=== PATIENT | female | born 1985 | race Caucasian/White ===

== ENCOUNTER 2018-02-25 13:29 | Inpatient (IN) | payer MEDICAID ==
[2018-02-25] MEDS ORDERED: PITOCin/NS 20 UNIT/1000ML DRIP 20,000 MILLIUNITS/1,000 ML BAG IV ONE (17:57)
--- NOTE | 2018-02-25 18:23 | Procedure Note ---
OB Delivery Note - Delivery Date of Delivery: 02/25/18 Surgeon: URSULA FRANK Estimated blood loss: 100cc - Vaginal Delivery presentation: vertex Delivery position: OA Intrapartum events: precipitous labor- <3hr Delivery induction: none Delivery monitor: external FHT, external uterine Route of delivery: Delivery placenta: spontaneous Delivery cord: 3 umbilical vessels Episiotomy: none Delivery laceration: 1st degree Delivery repair: vicryl (Vicryl using a single stitch) Anesthesia: none - A at 1 minute: 8 at 5 minutes: 9 Gender: Male (time of 18:06, infant weight is 7#5 or 3326 g)
--- NOTE | 2018-02-25 18:25 | History and Physical Report ---
History of Present Illness Date of examination: 02/25/18 Date of admission: 02/25/18 17:31 Chief complaint: Precipitated labor History of present illness: 32-year-old at 38+4 weeks presents in active labor, she is a [facility] [facility] patient. Patient with precipitous labor and subsequent delivery of term infant over intact perineum. Mother and in stable condition Past History Past Medical History: no pertinent history Past Surgical History: no surgical history [employer] History: denies: chlamydia, gonorrhea, hepatitis B, hepatitis C, HIV, trichomonas - Obstetrical History Expected Date of Delivery: 03/07/18 Actual Gestation: 38 Week(s) 4 Day(s) : 4 Para: 3 Medications and Allergies Allergies Allergy/AdvReac Type Severity Reaction Status Date / Time No Known Allergies Allergy Unverified 02/25/18 13:33 Home Medications Medication Instructions Recorded Confirmed Last Taken Type Ibuprofen [Motrin 600 MG tab] 600 mg PO Q8H PRN #30 tablet 02/25/18 Unknown Rx Multivitamin with Iron 1 each PO DAILY #30 tablet 02/25/18 Unknown Rx [Multivitamins with Iron] Review of Systems Constitutional: no fever, no chills, no sweats Cardiovascular: no chest pain, no syncope, no lightheadedness, no shortness of breath, no dyspnea on exertion, no paroxysmal nocturnal dyspnea Respiratory: no cough, no cough with sputum, no shortness of breath Gastrointestinal: no nausea, no vomiting Genitourinary: no vaginal bleeding, no leakage of fluid - Vital Signs Vital signs: Vital Signs Pulse BP 58 L 115/56 02/25/18 13:58 02/25/18 13:58 Temp Pulse Resp BP Pulse Ox 98.7 F 72 125/79 97 02/25/18 14:00 02/25/18 17:27 02/25/18 16:42 02/25/18 17:27 - Physical Exam Abdomen: Positive: normal appearance, soft. Negative: tenderness, guarding Uterus: Positive: other (Firm and well contracted). Negative: tender Extremities: Positive: normal Results All other labs normal. Assessment and Plan PPD# 0 s/p -Doing well P: -Routine care -Anticipate discharge in 24-48 hours - Patient Problems (1) (normal spontaneous vaginal delivery) Current Visit: Yes Status: Acute (2) 38 weeks gestation of Current Visit: Yes Status: Acute
[2018-02-25] MEDS ORDERED: DULCOLAX PR PRN (18:26)
[2018-02-25] MEDS ORDERED: MILK OF MAGNESIA PO PRN (18:26)
[2018-02-25] MEDS ORDERED: PHENERGAN PR PRN (18:26)
[2018-02-25] MEDS ORDERED: PHENERGAN PO PRN (18:26)
[2018-02-25] MEDS ORDERED: NORCO 5/325 PO PRN (18:26)
[2018-02-25] MEDS ORDERED: BENADRYL PO PRN (18:26)
[2018-02-25] MEDS ORDERED: TUCKS PAD TP PRN (18:26)
[2018-02-25] MEDS ORDERED: LANSINOH TP PRN (18:26)
[2018-02-25] MEDS ORDERED: ZOFRAN IV PRN (18:26)
[2018-02-25] MEDS ORDERED: TYLENOL PO PRN (18:26)
[2018-02-25] MEDS ORDERED: SENOKOT S PO SCH (19:00)
[2018-02-25] MEDS ORDERED: PITOCin/NS 20 UNIT/1000ML DRIP 20 UNITS/1,000 ML BAG IV SCH (19:00)
[2018-02-25] MEDS ORDERED: SODIUM CHLORIDE FLUSH SYRINGE 10 ML IV NR (19:00)
[2018-02-25 20:06] LABS: Basophils % (Auto) 0.2 % (0.0-1.8); Eosinophils % (Auto) 0.1 % (0.0-4.3); Hematocrit 34.7 % (30.3-42.9); Hemoglobin 11.6 gm/dl (10.1-14.3); Lymphocytes # (Auto) 1.5 K/mm3 (1.2-5.4); Lymphocytes % (Auto) 9.6 % (13.4-35.0); Mean Corpuscular HGB Conc 34 % (30-34); Mean Corpuscular Hemoglobin 28 pg (28-32); Mean Corpuscular Volume 84 fl (79-97); Monocytes # (Auto) 1.1 K/mm3 (0.0-0.8); Platelet Count 289 K/mm3 (140-440); Red Blood Count 4.14 M/mm3 (3.65-5.03); Red Cell Distribution Width 14.7 % (13.2-15.2)
[2018-02-25] MEDS ORDERED: FEOSOL PO SCH (22:00)
[2018-02-25] MEDS ORDERED: COLACE PO SCH (22:00)
[2018-02-26 07:44] LABS: Hematocrit 31.9 % (30.3-42.9); Hemoglobin 10.9 gm/dl (10.1-14.3)
[2018-02-26] MEDS ORDERED: PRENATAL VITAMIN PO SCH (10:00)
[2018-02-26] MEDS: MOTRIN PO SCH ×3 (12:00→18:27)
--- NOTE | 2018-02-26 14:21 | Progress Note ---
Assessment and Plan - Patient Problems (1) Status post normal vaginal delivery Current Visit: Yes Status: Acute Plan to address problem: PPD 1 - stable Discharge to home later today F/U at [facility] in 6 weeks for PP exam Subjective - Subjective Date of service: 02/26/18 Principal diagnosis: s/p Normal Spontaneous Vaginal Delivery Patient reports: appetite normal, voiding normally, pain well controlled, ambulating normally, no bowel movement [place]: doing well, nursing well Objective - Vital Signs Latest vital signs: Vital Signs Temp Pulse Resp BP BP Pulse Ox 02/26/18 11:42 98.1 F 59 L 20 111/59 94 02/26/18 07:23 98.4 F 52 L 20 98/58 96 02/26/18 04:50 98.5 F 61 20 99/58 97 02/26/18 00:35 98.7 F 64 20 112/65 98 02/25/18 20:58 99.1 F 69 20 116/62 96 02/25/18 19:12 61 123/63 02/25/18 18:56 59 L 118/59 02/25/18 18:41 56 L 127/56 02/25/18 18:36 65 98 02/25/18 18:31 62 97 02/25/18 18:26 59 L 140/62 97 02/25/18 17:27 72 97 02/25/18 17:22 67 97 02/25/18 17:17 70 97 02/25/18 17:12 66 96 02/25/18 17:07 65 97 02/25/18 17:02 65 96 02/25/18 16:57 62 98 02/25/18 16:52 62 98 02/25/18 16:47 72 97 02/25/18 16:42 68 125/79 97 Intake and Output 02/25/18 02/26/18 02/26/18 23:59 07:59 15:59 Intake Total 120 120 Balance 120 120 Intake: Oral 120 120 Other: Total, Intake Amount 120 120 # Voids Void 1 Estimated Blood Loss 100 - Exam Cardiovascular: Present: Regular rate, Normal S1, Normal S2, No murmurs Lungs: Present: Clear to auscultation, Normal air movement Abdomen: Present: normal appearance, soft Vulva: both: laceration/episiotomy (laceration well approximated) Uterus: Present: normal, firm, fundal height below umbilicus Extremities: Present: normal Deep Tendon Reflex Grade: Normal +2 - Labs Labs: Abnormal lab results 02/25/18 Range/Units 17:30 WBC 15.6 H (4.5-11.0) K/mm3 Lymph % (Auto) 9.6 L (13.4-35.0) % [place] # 1.1 H (0.0-0.8) K/mm3 Seg Neutrophils % 83.1 H (40.0-70.0) % Seg Neutrophils # 12.9 H (1.8-7.7) K/mm3
--- NOTE | 2018-02-26 14:24 | Discharge Summary ---
Providers - Providers Date of Admission: 02/25/18 17:31 Date of discharge: 02/26/18 Attending physician: MICHELLE GARCÍA MD Primary care physician: MICHELLE GARCÍA MD Hospitalization Reason for admission: active labor, IUP at term Delivery: Episiotomy: none Laceration: 1st degree Other procedures: none complications: none Discharge diagnosis: IUP at term delivered [place] baby: male Hospital course: Uncomplicated Condition at discharge: Good Disposition: DC-01 TO HOME OR SELFCARE - Discharge Diagnoses (1) Status post normal vaginal delivery Status: Acute Plan - Discharge Medications Prescriptions: Ibuprofen [Motrin 600 MG tab] 600 mg PO Q8H PRN #30 tablet PRN Reason: Pain Multivitamin with Iron [Multivitamins with Iron] 1 each PO DAILY #30 tablet - Provider Discharge Summary Activity: routine, no sex for 6 weeks, no heavy lifting 4 weeks, no strenuous exercise Diet: routine Instructions: routine Additional instructions: [] Smoking cessation referral if applicable(refer to patient education folder for contact #) [] Refer to [facility] Booklet Call your doctor immediately for: * Fever > 100.5 * Heavy vaginal bleeding ( >1 pad per hour) * Severe persistent headache * Shortness of breath * Reddened, hot, painful area to leg or breast * Drainage or odor from incision. * Keep incision clean and dry at all times and follow doctor's instructions regarding bathing/showering - Follow up plan Follow up: MICHELLE GARCÍA MD [Primary Care Provider] - 6 Weeks (Follow up at [facility] in 6 weeks for exam)
[2018-02-26 17:06] VITALS: BP 103/50
== END 2018-02-26 22:00 | disposition home or self-care (01) | DRG 775 ==
LOC: TRG 13:29 → LD 17:31 → OB 20:26
PROVIDERS: ADMIT Obstetrics & Gynecology; ATTEND Obstetrics & Gynecology
PROC: 10E0XZZ Delivery of Products of Conception, External Approach (ICD-10-PCS; principal; 2018-02-25)
PROC: 0HQ9XZZ Repair Perineum Skin, External Approach (ICD-10-PCS; 2018-02-25)
DX: O62.3 Precipitate labor (principal); O70.0 First degree perineal laceration during delivery; Z37.0 Single live birth; Z3A.38 38 weeks gestation of pregnancy
CPT/HCPCS: 36415; 85014; 85018; 85025; 86850; 86900; 86901; J2590